=== PATIENT | male | born 1990 | race African-American/Black ===

== ENCOUNTER 2018-02-12 22:14 | Emergency (ER) | payer SELFPAY ==
[~2018-02-12] VITALS: Ht 167.6 cm; Wt 97.3 kg
[2018-02-12] MEDS ORDERED: ALBUTEROL0.63 MG/3 (22:53)
[2018-02-12] MEDS ORDERED: MAGNESIUM/ALUMINUM/SIMETHICONE 30 ML UDC PO ONE (23:15)
[2018-02-12] MEDS ORDERED: BELLADONNA ALK/PHENOBARBITAL 5 ML UDC PO ONE (23:15)
[2018-02-12] MEDS ORDERED: LIDOCAINE VISC 2% SOLN 15 ML UDC PO ONE (23:15)
[2018-02-13 00:13] VITALS: BP 141/81
== END 2018-02-13 00:10 | disposition home or self-care (01) ==
LOC: FSED 22:14
DX: R07.89 Other chest pain (principal); K21.9 Gastro-esophageal reflux disease without esophagitis; K22.4 Dyskinesia of esophagus; J45.909 Unspecified asthma, uncomplicated
CPT/HCPCS: 71046; 80048; 84484; 85025; 93005; 99283